=== PATIENT | male | born 1965 | race Caucasian/White ===

== ENCOUNTER → 2016-11-06 | Outpatient (CLI) | payer OTHER ==
[~2016-11-06] MED LIST: ASPI-391 PO; CARB1CAP8 PO; CLON0.5T3 PO; KPP/1000 PO; LACO100T PO; LAMO150T32 PO; LEVE1TAB57 PO; MULT-506 PO; OXYB10TA13 PO; OXYC-57 PO; PRLSR20 PO; TAMS0.4C38 PO
[2016-11-06 13:10] LABS: BASO % 0.6 %; BASO ABS # 0.04 K/uL (0-0.2); COMPLETE YES; EOS % 2.9 %; HEMATOCRIT 38.6 % (42-52); IG% 0.2 %; LYMPH % 37.3 %; LYMPH ABS # 2.33 K/uL (1.2-3.4); MEAN CELL VOLUME 93.7 fL (80-100); MEAN CORPUSCULAR HEMOGLOBIN 32.3 pg (25-34); MEAN CORPUSCULAR HGB CONC 34.5 g/dl (32-36); MEAN PLATELET VOLUME 9.5 fL (7.4-10.4); MONO % 7.5 %; NEUT % 51.5 %; PLATELET COUNT 351 K/uL (130-400); RED BLOOD COUNT 4.12 M/uL (4.7-6.1); WHITE BLOOD COUNT 6.24 K/uL (4.8-10.8)
[2016-11-06 13:31] LABS: URINE APPEARANCE CLEAR (CLEAR); URINE COLOR DK YELLOW; URINE NITRITE NEG (NEG); URINE SPECIFIC GRAVITY 1.024 (1.000-1.030); UROBILINOGEN NEG (NEG); ZZUR CULT IF INDIC CLEAN CATCH YES
[2016-11-06 13:32] LABS: ALT/SGPT 17 U/L (12-78); AST/SGOT 3 U/L (15-37); BLOOD UREA NITROGEN 11 mg/dl (7-18); BUN/CREATININE RATIO 13.5 (10-20); CALCIUM 8.7 mg/dl (8.5-10.1); CARBON DIOXIDE 30 mmol/L (21-32); CHLORIDE 105 mmol/L (98-107); CREATININE 0.84 mg/dl (0.60-1.40); GLUCOSE 105 mg/dl (70-99); POTASSIUM 3.5 mmol/L (3.5-5.1); SODIUM 142 mmol/L (136-145)
[2016-11-06 13:35] LABS: MANUAL MICROSCOPIC REQUIRED? NO; REVIEW REQ? NO; URINE BILIRUBIN NEG (NEG)
[2016-11-06 13:43] LABS: ALB/GLOB RATIO 1.3 (0.9-2); ALKALINE PHOSPHATASE 61 U/L (45-117); CHOLESTEROL 201 mg/dl (0-200); CHOLESTEROL/HDL RATIO 2.5; HDL CHOLESTEROL 79 mg/dl; LDL CHOLESTEROL CALCULATED 104 mg/dl; TRIGLYCERIDES 88 mg/dl (0-150); VERY LOW DENSITY LIPOPROT CALC 18 mg/dl
== END | disposition home or self-care (01) ==
LOC: C.LABBC 09:54
PROVIDERS: ATTEND Internal Medicine Geriatric Medicine
DX: E53.8 Deficiency of other specified B group vitamins (principal); E78.5 Hyperlipidemia, unspecified; R73.9 Hyperglycemia, unspecified; E55.9 Vitamin D deficiency, unspecified; R35.0 Frequency of micturition; G40.109 Localization-related (focal) (partial) symptomatic epilepsy and epileptic syndromes with simple partial seizures, not intractable, without status epilepticus

== ENCOUNTER → 2016-12-04 | Outpatient (CLI) | payer OTHER ==
[~2016-12-04] MED LIST changes: +GADAVIST IV PRN
--- NOTE | 2016-12-04 16:35 | DIAGNOSTIC IMAGING REPORT ---
MRI OF THE BRAIN WITHOUT AND WITH IV CONTRAST SEIZURE PROTOCOL CLINICAL HISTORY: G40.109 seizures COMPARISON STUDY: 05/02/2015 TECHNIQUE: Utilizing a 1.5 Gena magnet and dedicated coil, multiplanar, multiecho imaging of the brain was performed pre and postcontrast administration. IV administration of 8.5 mL of Gadavist contrast was uneventful. Thin cut coronal T2 imaging was performed according to seizure protocol. FINDINGS: No evidence for an acute ischemic process. Atrophy over the cerebral convexities as well as cerebellum. Findings are perhaps slightly progressive from the prior study. Signal characteristics the cerebellar as well as cerebral hemispheres otherwise are unremarkable. There is no evidence for abnormal postcontrast enhancement. Ventricular system is midline. IMPRESSION: Atrophy over the cerebral convexities as well as cerebellum slightly progressive from the prior study. No acute process. Electronically signed by: Roby Espino M.D. 12/04/2016 4:34 PM Dictated Date/Time: 12/04/2016 4:31 PM
== END | disposition home or self-care (01) ==
LOC: C.MRI 15:43
PROVIDERS: ATTEND Psychiatry & Neurology Neurology
DX: G40.109 Localization-related (focal) (partial) symptomatic epilepsy and epileptic syndromes with simple partial seizures, not intractable, without status epilepticus (principal); G31.9 Degenerative disease of nervous system, unspecified

== ENCOUNTER → 2016-12-05 | Outpatient (CLI) | payer OTHER ==
[~2016-12-05] MED LIST changes: -GADAVIST IV PRN
== END | disposition home or self-care (01) ==
LOC: C.LABSPEC 17:03
PROVIDERS: ATTEND Nurse Practitioner Family
DX: R31.9 Hematuria, unspecified (principal); R82.8 Abnormal findings on cytological and histological examination of urine

== ENCOUNTER → 2016-12-11 | Outpatient (CLI) | payer OTHER ==
[~2016-12-11] MED LIST changes: +OPTIRAY 320 IV PRN
--- NOTE | 2016-12-11 15:16 | DIAGNOSTIC IMAGING REPORT ---
CT UROGRAM CLINICAL HISTORY: Hematuria. COMPARISON STUDY: Abdominal CT dated 10/30/2015. TECHNIQUE: Before and following the IV administration of 119 cc of Optiray 320, CT urogram of the abdomen and pelvis is performed from the lung bases to the proximal femora. Images are reviewed in the axial, sagittal, and coronal planes. IV contrast was administered without complication. CT DOSE: 1028.14 mGycm FINDINGS: Lung bases: The heart is normal in size and without pericardial effusion. The lung bases are clear noting minimal dependent atelectasis. Liver: The contrast-enhanced liver is normal in size, contour, and attenuation. There is minimal central intrahepatic biliary ductal dilatation. The hepatic veins and portal veins are patent. Gallbladder: Surgically absent noting clips in the gallbladder fossa. Spleen: Normal in size and attenuation. Pancreas: Unremarkable. Adrenal glands: Unremarkable. Kidneys and ureters: The contrast enhanced kidneys are normal in size and without hydronephrosis. A 6 mm nonobstructing calculus is present in the lower pole of the left kidney. There are 2 punctate nonobstructing right renal calculi identified. The kidneys enhance and excrete symmetrically. There is no enhancing renal cortical mass lesion identified. There is no evidence of urothelial lesion within the renal pelvis bilaterally or along the course of either ureter. Abdominal vasculature: The abdominal aorta is normal in course and caliber. Bowel: The small bowel and colon are normal in course and caliber. There is moderate colonic fecal retention. The appendix is well-visualized and normal. Peritoneum: There is no intraperitoneal free air or abdominal ascites. There is a tiny fat-containing umbilical hernia. Lymphadenopathy: None. Pelvic viscera: The bladder, prostate, and seminal vesicles are normal as visualized. Skeletal structures: There is mild lumbosacral spondylosis. No lytic or blastic bony lesions are seen. IMPRESSION: 1. Bilateral nonobstructing renal calculi. 2. There is no enhancing renal cortical mass. No evidence of urothelial lesion is seen within the renal pelvis bilaterally or along the course of the ureters. 3. The bladder is normal as visualized. 4. Moderate constipation. 5. Additional findings as above. Electronically signed by: Ruben Ybarra M.D. 12/11/2016 3:15 PM Dictated Date/Time: 12/11/2016 3:08 PM
== END | disposition home or self-care (01) ==
LOC: C.CTS 14:09
PROVIDERS: ATTEND Nurse Practitioner Family
DX: R31.9 Hematuria, unspecified (principal); N20.0 Calculus of kidney; K59.00 Constipation, unspecified

== ENCOUNTER → 2017-05-28 | Outpatient (CLI) | payer OTHER ==
[~2017-05-28] MED LIST changes: -OPTIRAY 320 IV PRN
[2017-05-28 15:19] LABS: ALT/SGPT 17 U/L (12-78); AST/SGOT 4 U/L (15-37); BLOOD UREA NITROGEN 12 mg/dl (7-18); BUN/CREATININE RATIO 14.7 (10-20); CALCIUM 8.7 mg/dl (8.5-10.1); CARBON DIOXIDE 29 mmol/L (21-32); CHLORIDE 108 mmol/L (98-107); CREATININE 0.79 mg/dl (0.60-1.40); GLUCOSE 97 mg/dl (70-99); POTASSIUM 3.8 mmol/L (3.5-5.1); SODIUM 141 mmol/L (136-145)
[2017-05-28 15:22] LABS: ALB/GLOB RATIO 1.3 (0.9-2); ALKALINE PHOSPHATASE 73 U/L (45-117)
== END | disposition home or self-care (01) ==
LOC: C.LAB1850 12:56
PROVIDERS: ATTEND Urology
DX: G40.109 Localization-related (focal) (partial) symptomatic epilepsy and epileptic syndromes with simple partial seizures, not intractable, without status epilepticus (principal); Z51.81 Encounter for therapeutic drug level monitoring; Z79.899 Other long term (current) drug therapy

== ENCOUNTER 2017-06-01 08:07 | Emergency (ER) | payer OTHER ==
[~2017-06-01] VITALS: Ht 182.9 cm; Wt 81.0 kg
[~2017-06-01 08:07] MED LIST changes: -ASPI-391 PO; -CLON0.5T3 PO; -KPP/1000 PO; -LACO100T PO; -OXYC-57 PO; -TAMS0.4C38 PO
[2017-06-01 08:13] VITALS: TEMP 36.3; Ht 182.9 cm; Wt 81.0 kg
[2017-06-01] MEDS ORDERED: SODIUM CHLORIDE 0.9% 1000ML 1,000 ML IV STA (08:30)
[2017-06-01] MEDS ORDERED: KETOROLAC TROMETHAMINE 30 MG/ML VIAL IV STA (08:30)
[2017-06-01] MEDS ORDERED: ONDANSETRON INJ 2 MG/ML 2 ML VIAL IV STA (08:30)
[2017-06-01] MEDS ORDERED: KPP/1000 PO (08:39)
[2017-06-01] MEDS ORDERED: CLON0.5T3 PO (08:39)
[2017-06-01] MEDS ORDERED: ASPI-391 PO (08:39)
[2017-06-01] MEDS ORDERED: LACO100T PO (08:39)
[2017-06-01 09:00] LABS: BASO % 0.3 %; BASO ABS # 0.03 K/uL (0-0.2); COMPLETE YES; EOS % 0.8 %; HEMATOCRIT 37.9 % (42-52); IG% 0.1 %; LYMPH % 10.8 %; LYMPH ABS # 1.12 K/uL (1.2-3.4); MEAN CELL VOLUME 93.8 fL (80-100); MEAN CORPUSCULAR HEMOGLOBIN 31.9 pg (25-34); MEAN PLATELET VOLUME 9.3 fL (7.4-10.4); MONO % 6.8 %; NEUT % 81.2 %; PLATELET COUNT 281 K/uL (130-400); RED BLOOD COUNT 4.04 M/uL (4.7-6.1); WHITE BLOOD COUNT 10.37 K/uL (4.8-10.8)
[2017-06-01 09:16] LABS: URINE APPEARANCE CLOUDY (CLEAR); URINE BILIRUBIN NEG (NEG); URINE COLOR DK YELLOW; URINE NITRITE NEG (NEG); URINE SPECIFIC GRAVITY 1.031 (1.000-1.030); UROBILINOGEN NEG (NEG); ZZUR CULT IF INDIC CLEAN CATCH NO
[2017-06-01 09:18] LABS: BUN/CREATININE RATIO 13.3 (10-20); CALCIUM 8.5 mg/dl (8.5-10.1); CREATININE 0.9 mg/dl (0.60-1.40); POTASSIUM 3.6 mmol/L (3.5-5.1)
[2017-06-01 09:24] LABS: MANUAL MICROSCOPIC REQUIRED? YES; REVIEW REQ? NO
[2017-06-01 09:31] LABS: URINE BACTERIA NEG (NEG)
--- NOTE | 2017-06-01 09:31 | DIAGNOSTIC IMAGING REPORT ---
CT SCAN OF THE ABDOMEN AND PELVIS WITHOUT IV CONTRAST CLINICAL HISTORY: Left flank pain. COMPARISON STUDY: Abdominal CT dated 12/11/2016. TECHNIQUE: CT scan of the abdomen and pelvis is performed from the lung bases to the proximal femora. Images are reviewed in the axial, sagittal, and coronal planes. IV contrast was not administered for this examination as per the front clinician. Automated dose control exposure was utilized. A dose lowering technique was utilized adhering to the principles of ALARA. CT DOSE: 856.62 mGy.cm FINDINGS: Lung bases: The heart is enlarged and without pericardial effusion. There is diminished attenuation of the cardiac blood pool as compared to the myocardium suggesting anemia. The lung bases are clear noting dependent atelectasis. Liver: The unenhanced liver is normal in size, contour, and attenuation. There is minimal central intrahepatic biliary ductal dilatation. Gallbladder: Surgically absent noting clips in the gallbladder fossa. Spleen: Normal in size and attenuation. Pancreas: Unremarkable. Adrenal glands: Unremarkable. Kidneys: The unenhanced kidneys are normal in size. There is a 6 mm obstructing calculus in the mid left ureter at the level of L3-L4 seen on axial image #261. This causes moderate left-sided hydroureteronephrosis. There is associated left-sided perinephric stranding and trace fluid. There are at least 2 additional nonobstructing calculi in the lower pole of the left kidney measuring up to 6 mm. There are least 4 nonobstructing right renal calculi measuring up to 3 mm. There is no right-sided hydronephrosis. There is no evidence of contour deforming renal mass lesion. Abdominal vasculature: The abdominal aorta is normal in course and caliber. Bowel: The small bowel and colon are normal in course and caliber. There is moderate colonic fecal retention. The appendix is well-visualized and normal. Peritoneum: There is no intraperitoneal free air or abdominal ascites. Lymphadenopathy: None. Pelvic viscera: The bladder, prostate, and seminal vesicles are normal as visualized. Skeletal structures: There is mild lumbosacral spondylosis and scoliosis. No lytic or blastic lesions are seen. IMPRESSION: 1. There is a 6 mm obstructing calculus in the mid left ureter. This causes moderate left-sided hydroureteronephrosis. 2. Additional bilateral nonobstructing renal calculi as above. 3. Cardiomegaly. 4. Moderate constipation. Electronically signed by: Ruben Ybarra M.D. 06/01/2017 9:29 AM Dictated Date/Time: 06/01/2017 9:21 AM
[2017-06-01] MEDS ORDERED: MoRPHine SULFATE 4 MG/ML 1 ML CARP\\VIAL IV STA (09:43)
[2017-06-01] MEDS ORDERED: TAMSULOSIN HCL 0.4 MG CAP PO ONE (09:45)
[2017-06-01] MEDS ORDERED: TAMS0.4C38 PO (11:13)
[2017-06-01] MEDS ORDERED: OXYC-57 PO (11:13)
--- NOTE | 2017-06-01 11:17 | EMERGENCY ROOM VISIT NOTE ---
History Report prepared by Cristobal: Brunilda Lowe Under the Supervision of: Dr. Javier Zavala D.O. First contact with patient: 08:23 Chief Complaint: KIDNEY STONE Stated Complaint: LEFT SIDED ABD. PAIN History of Present Illness The patient is a 51 year old male who presents to the Emergency Room with complaints of persistent left sided abdominal pain starting 0530 this morning. He currently rates his discomfort as a 7/10 in severity. The patient describes the pain as strong and the pain goes from his left abdomen down to his left testicle. He has a history of kidney stones and feels that this is a kidney stone. He denies any nausea, vomiting, or diarrhea. He denies any other symptoms. Source of History: patient Onset: 0530 this morning Position: abdomen (left) Symptom Intensity: 7/10 Quality: other (strong pain) Timing: other (persistent) Associated Symptoms: No nausea, No vomiting, No diarrhea Review of Systems See HPI for pertinent positives & negatives. A total of 10 systems reviewed and were otherwise negative. Past Medical & Surgical Medical Problems: (1) Epilepsy Unspec W/O Mention Intractable Epilepsy (2) Esophageal Reflux (3) Hyperlipidemia Nec/Nos (4) Irritable Bowel Syndrome Surgical Problems: (1) Hx of cholecystectomy Family History Patient reports no known family medical history. Social History Smoking Status: Never Smoker Alcohol Use: none Drug Use: none Marital Status: single Current/Historical Medications Scheduled Carbamazepine (Carbatrol Er), 400 MG PO AMPM Clonazepam (Klonopin), 0.5 MG PO BID Lacosamide (Vimpat), 100 MG PO BID Lamotrigine (Lamictal), 300 MG PO AMPM Levetiracetam (Keppra), 2,000 MG PO BID Multivitamin (Multivitamin), 1 TAB PO DAILY Omeprazole (Prilosec), 20 MG PO AMPM Scheduled PRN Qloqxpq-Wprlctritseyu-Pglxmjoz (Excedrin Extra Strength), 1 TAB PO UD PRN for Pain Oxybutynin Chloride Er (Ditropan Xl), 10 MG PO DAILY PRN for INCONTINENCE Allergies Coded Allergies: Amoxicillin (Verified Allergy, Unknown, ., 06/01/17) Physical Exam Vital Signs Date Time Temp Pulse Resp B/P (MAP) Pulse Ox O2 Delivery O2 Flow Rate FiO2 06/01/17 10:53 57 15 121/73 97 Room Air 06/01/17 10:00 58 17 131/79 98 Room Air 06/01/17 09:37 55 19 134/83 99 Room Air 06/01/17 08:13 36.3 68 20 129/80 95 Room Air Physical Exam CONSTITUTIONAL/VITAL SIGNS: Reviewed / noted above. GENERAL: Non-toxic in appearance. INTEGUMENTARY: Warm, dry, and [place]. HEAD: Normocephalic. EYES: without scleral icterus or trauma. ENT/OROPHARYNX: clear and moist. LYMPHADENOPATHY/NECK: Is supple without lymphadenopathy or meningismus. RESPIRATORY: Lungs clear and equal. CARDIOVASCULAR: Regular rate and rhythm. GI/ABDOMEN: Soft and nontender. No organomegaly or pulsatile mass. No rebound or guarding. Normal bowel sounds. EXTREMITIES: Warm and well perfused. BACK: Left CVA tenderness. NEUROLOGICAL: Intact without focal deficits. PSYCHIATRIC: normal affect. MUSCULOSKELETAL: Normally developed with good muscle tone. Medical Decision & Procedures ER Provider Diagnostic Interpretation: Radiology results as stated below per my review and radiologist interpretation: CT SCAN OF THE ABDOMEN AND PELVIS WITHOUT IV CONTRAST CLINICAL HISTORY: Left flank pain. COMPARISON STUDY: Abdominal CT dated 12/11/2016. TECHNIQUE: CT scan of the abdomen and pelvis is performed from the lung bases to the proximal femora. Images are reviewed in the axial, sagittal, and coronal planes. IV contrast was not administered for this examination as per the front clinician. Automated dose control exposure was utilized. A dose lowering technique was utilized adhering to the principles of ALARA. CT DOSE: 856.62 mGy.cm FINDINGS: Lung bases: The heart is enlarged and without pericardial effusion. There is diminished attenuation of the cardiac blood pool as compared to the myocardium suggesting anemia. The lung bases are clear noting dependent atelectasis. Liver: The unenhanced liver is normal in size, contour, and attenuation. There is minimal central intrahepatic biliary ductal dilatation. Gallbladder: Surgically absent noting clips in the gallbladder fossa. Spleen: Normal in size and attenuation. Pancreas: Unremarkable. Adrenal glands: Unremarkable. Kidneys: The unenhanced kidneys are normal in size. There is a 6 mm obstructing calculus in the mid left ureter at the level of L3-L4 seen on axial image #261. This causes moderate left-sided hydroureteronephrosis. There is associated left-sided perinephric stranding and trace fluid. There are at least 2 additional nonobstructing calculi in the lower pole of the left kidney measuring up to 6 mm. There are least 4 nonobstructing right renal calculi measuring up to 3 mm. There is no right-sided hydronephrosis. There is no evidence of contour deforming renal mass lesion. Abdominal vasculature: The abdominal aorta is normal in course and caliber. Bowel: The small bowel and colon are normal in course and caliber. There is moderate colonic fecal retention. The appendix is well-visualized and normal. Peritoneum: There is no intraperitoneal free air or abdominal ascites. Lymphadenopathy: None. Pelvic viscera: The bladder, prostate, and seminal vesicles are normal as visualized. Skeletal structures: There is mild lumbosacral spondylosis and scoliosis. No lytic or blastic lesions are seen. IMPRESSION: 1. There is a 6 mm obstructing calculus in the mid left ureter. This causes moderate left-sided hydroureteronephrosis. 2. Additional bilateral nonobstructing renal calculi as above. 3. Cardiomegaly. 4. Moderate constipation. Electronically signed by: Ruben Ybarra M.D. 06/01/2017 9:29 AM Dictated Date/Time: 06/01/2017 9:21 AM Laboratory Results 06/01/17 08:45 Red Blood Count 4.04, Mean Corpuscular Volume 93.8, Mean Corpuscular Hemoglobin 31.9, Mean Corpuscular Hemoglobin Concent 34.0, Mean Platelet Volume 9.3, Neutrophils (%) (Auto) 81.2, Lymphocytes (%) (Auto) 10.8, Monocytes (%) (Auto) 6.8, Eosinophils (%) (Auto) 0.8, Basophils (%) (Auto) 0.3, Neutrophils # (Auto) 8.42, Lymphocytes # (Auto) 1.12, Monocytes # (Auto) 0.71, Eosinophils # (Auto) 0.08, Basophils # (Auto) 0.03 06/01/17 08:45 Test 06/01/17 08:35 06/01/17 08:45 Urine Color DK YELLOW Urine Appearance CLOUDY (CLEAR) Urine pH 5.0 (4.5-7.5) Urine Specific [place] 1.031 (1.000-1.030) Urine Protein NEG (NEG) Urine Glucose (UA) NEG (NEG) Urine Ketones NEG (NEG) Urine Occult Blood 2+ (NEG) Urine Nitrite NEG (NEG) Urine Bilirubin NEG (NEG) Urine Urobilinogen NEG (NEG) Urine Leukocyte Esterase TRACE (NEG) Urine RBC (Auto) /hpf (0-4) Urine RBC 10-30 /hpf (0-4) Urine WBC 1-5 /hpf (0-5) Urine Epithelial Cells 0-5 /lpf (0-5) Urine Crystals (NONE PRSENT) Urine Calcium Oxalate Crystals PRESENT (NONE PRSENT) Urine Bacteria NEG (NEG) White Blood Count 10.37 K/uL (4.8-10.8) Red Blood Count 4.04 M/uL (4.7-6.1) Hemoglobin 12.9 g/dL (14.0-18.0) Hematocrit 37.9 % (42-52) Mean Corpuscular Volume 93.8 fL (80-100) Mean Corpuscular Hemoglobin 31.9 pg (25-34) Mean Corpuscular Hemoglobin Concent 34.0 g/dl (32-36) Platelet Count 281 K/uL (130-400) Mean Platelet Volume 9.3 fL (7.4-10.4) Neutrophils (%) (Auto) 81.2 % Lymphocytes (%) (Auto) 10.8 % Monocytes (%) (Auto) 6.8 % Eosinophils (%) (Auto) 0.8 % Basophils (%) (Auto) 0.3 % Neutrophils # (Auto) 8.42 K/uL (1.4-6.5) Lymphocytes # (Auto) 1.12 K/uL (1.2-3.4) Monocytes # (Auto) 0.71 K/uL (0.11-0.59) Eosinophils # (Auto) 0.08 K/uL (0-0.5) Basophils # (Auto) 0.03 K/uL (0-0.2) RDW Standard Deviation 41.1 fL (36.4-46.3) RDW Coefficient of Variation 12.1 % (11.5-14.5) Immature Granulocyte % (Auto) 0.1 % Immature Granulocyte # (Auto) 0.01 K/uL (0.00-0.02) Anion Gap 6.0 mmol/L (3-11) Est Creatinine Clear Calc Drug Dose 109.0 ml/min Estimated GFR () 115.8 Estimated GFR (Non- 99.9 BUN/Creatinine Ratio 13.3 (10-20) Calcium Level 8.5 mg/dl (8.5-10.1) Total Bilirubin 0.3 mg/dl (0.2-1) Direct Bilirubin 0.1 mg/dl (0-0.2) Aspartate Amino Transf (AST/SGOT) 7 U/L (15-37) Alanine Aminotransferase (ALT/SGPT) 17 U/L (12-78) Alkaline Phosphatase 73 U/L (45-117) Total Protein 7.1 gm/dl (6.4-8.2) Albumin 3.9 gm/dl (3.4-5.0) Lipase 142 U/L (73-393) Laboratory results as stated above per my review. Medications Administered Medications (Trade) Dose Ordered Sig/Mey Route Start Time Stop Time Status Last Admin Dose Admin Sodium Chloride 1,000 ml @ 999 mls/hr Q1H1M STAT IV 06/01/17 08:30 06/01/17 09:30 DC 06/01/17 08:55 999 MLS/HR Ondansetron HCl (Zofran Inj) 4 mg NOW STAT IV 06/01/17 08:30 06/01/17 08:32 DC 06/01/17 08:55 4 MG Ketorolac Tromethamine (Toradol Inj) 30 mg NOW STAT IV 06/01/17 08:30 06/01/17 08:32 DC 06/01/17 08:56 30 MG Tamsulosin HCl (Flomax Cap) 0.4 mg NOW ONCE PO 06/01/17 09:45 06/01/17 09:46 DC 06/01/17 09:56 0.4 MG Morphine Sulfate (MoRPHine SULFATE INJ) 4 mg NOW STAT IV 06/01/17 09:43 06/01/17 09:44 DC 06/01/17 09:57 4 MG ED Course 0830: Toradol Inj 30 mg IV, Zofran Inj 4 mg IV, NSS 1000 ml @ 999 mls/hr IV. 0832: Previous medical records were reviewed. The patient was evaluated in room B6. A complete history and physical examination was performed. 0943: Morphine Sulfate 4 mg IV. 0945: Flomax Cap 0.4 mg PO. 1106: On reevaluation, the patient is doing well. I discussed the results and findings with the patient. He verbalized agreement of the treatment plan. He was discharged home. Medical Decision Differential considered: pancreatitis, hepatitis, or acute cholecystitis, AAA, UTI, pyelonephritis, kidney stones, appendicitis, diverticulitis, shingles, bowel obstruction mesenteric ischemia, intussusception,hernia, testicular torsion. This is a 51-year-old male who presents to the ED with a chief complaint of left lower abdominal pain that radiates into his testicle. The patient reports history of kidney stones. CT scan reveals a 6 mm mid left ureteral obstructing stone. Blood work including renal function and CBC were normal. Urine did not show infection. The patient was treated with IV Toradol, IV morphine, IV Zofran and IV fluids. On reassessment, he is feeling better. He was given by mouth Flomax. He was given a prescription for Flomax, Percocet and is to take ibuprofen. Urine strainer was also provided. He will follow-up with his urologist. Medication Reconcilliation Current Medication List: was personally reviewed by me Blood Pressure Screening Patient's blood pressure: Normal blood pressure Blood pressure disposition: Did not require urgent referral Impression Primary Impression: Renal colic Additional Impression: Ureteral calculus, left Scribe Attestation The scribe's documentation has been prepared under my direction and personally reviewed by me in its entirety. I confirm that the note above accurately reflects all work, treatment, procedures, and medical decision making performed by me. Departure Information Dispostion Home / Self-Care Prescriptions Oxycodone/Acetaminophen 5MG/325MG (PERCOCET 5MG/325MG) Tab 1 TAB PO Q6H Y for Pain, #20 TAB Prov: Javier Zavala D.O. 06/01/17 Tamsulosin Hcl (FLOMAX) 0.4 Mg Cap 0.4 MG PO HS for 10 Days, #10 CAP Prov: Javier Zavala D.O. 06/01/17 Referrals Jluis Bell M.D. (PCP) Patient Instructions My [facility] Additional Instructions Follow-up with your doctor for further care and evaluation in 1-5 days. Return to the emergency department for worsening or new symptoms or any concerns. You have been examined and treated today on an emergency basis only. This is not a substitute for, or an effort to provide, complete comprehensive medical care. It is impossible to recognize and treat all injuries or illnesses in a single emergency department visit. It is therefore important that you follow up closely with your doctor. Call as soon as possible for an appointment. Strain urine for stone. Take ibuprofen 6 mg every 6 hours for pain. Percocet as prescribed. No driving within 6 hours of use. Do not take additional Tylenol while taking Percocet. Flomax as prescribed. Problem Qualifiers
[2017-06-01 11:39] VITALS: BP 119/73; PULSE 53; O2SAT 98
== END 2017-06-01 11:37 | disposition home or self-care (01) ==
LOC: C.EDB 08:10
DX: N23 Unspecified renal colic (principal); N20.1 Calculus of ureter; E78.5 Hyperlipidemia, unspecified; K58.9 Irritable bowel syndrome, unspecified; G40.909 Epilepsy, unspecified, not intractable, without status epilepticus; K21.9 Gastro-esophageal reflux disease without esophagitis; Z87.442 Personal history of urinary calculi; Z79.899 Other long term (current) drug therapy

== ENCOUNTER → 2017-06-18 | Outpatient (CLI) | payer OTHER ==
[~2017-06-18] MED LIST changes: +ASPI-391 PO; +CLON0.5T3 PO; +KPP/1000 PO; +LACO100T PO; -LEVE1TAB57 PO; +OPTIRAY 300 IV PRN; +OXYC-57 PO
--- NOTE | 2017-06-18 14:43 | DIAGNOSTIC IMAGING REPORT ---
IV PYELOGRAM CLINICAL HISTORY: Nephrolithiasis. COMPARISON STUDY: Abdominal CT dated 06/01/2017. 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 IVP pyelogram was then performed following the IV administration of 100 cc of iodinated contrast, tomographic images are acquired in the corticomedullary and excretory phases of enhancement. Overhead views of the renal collecting system and bladder were obtained in multiple obliquities both pre and post void. 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 There is moderate colonic fecal retention. Cholecystectomy clips are present in the right upper quadrant. A punctate nonobstructing right renal calculus is observed. No additional renal calculi are identified on today's examination. The left ureteral calculus seen by CT on 06/01/2017 is no longer identified. Phleboliths are observed in the pelvis. Mild lumbosacral spondylosis is observed. Following contrast administration the kidneys enhance and excrete symmetrically. There is no hydronephrosis. No filling defects are identified within the renal pelvis bilaterally or along the course of the ureters. The distal left ureter is suboptimal opacified. The bladder is normal as visualized. No significant post-void residual is seen. IMPRESSION: 1. There is a punctate nonobstructing right renal calculus. 2. No additional renal calculi are identified. The left ureteral stone seen by CT on 06/01/2017 is no longer apparent. 3. Otherwise unremarkable IV pyelogram. . Electronically signed by: Ruben Ybarra M.D. 06/18/2017 2:42 PM Dictated Date/Time: 06/18/2017 2:39 PM
== END | disposition home or self-care (01) ==
LOC: C.RAD 12:32
PROVIDERS: ATTEND Nurse Practitioner Family
DX: N20.1 Calculus of ureter (principal)

== ENCOUNTER → 2017-11-03 | Outpatient (CLI) | payer OTHER ==
[~2017-11-03] MED LIST changes: +LAMO150T PO; -LAMO150T32 PO; -OPTIRAY 300 IV PRN
--- NOTE | 2017-11-03 16:10 | DIAGNOSTIC IMAGING REPORT ---
CHEST 2 VIEWS ROUTINE CLINICAL HISTORY: R05 [id number] cough. Dyspnea. COMPARISON STUDY: 10/26/2015 FINDINGS: The bones soft tissues and hemidiaphragms are normal. The cardiomediastinal silhouette is normal. The lungs are clear. The pulmonary vasculature is normal. IMPRESSION: Negative chest. The above report was generated using voice recognition software. It may contain grammatical, syntax or spelling errors. Electronically signed by: Roby Espino M.D. 11/03/2017 4:08 PM Dictated Date/Time: 11/03/2017 4:08 PM
== END | disposition home or self-care (01) ==
LOC: C.RADBC 15:53
PROVIDERS: ATTEND Nurse Practitioner Adult Health
DX: R05 Cough (principal)

== ENCOUNTER → 2017-11-10 | Outpatient (CLI) | payer OTHER ==
[2017-11-10 16:46] LABS: BASO % 0.7 %; BASO ABS # 0.04 K/uL (0-0.2); EOS % 3.3 %; EOS ABS # 0.18 K/uL (0-0.5); HEMATOCRIT 39.3 % (42-52); HEMOGLOBIN 13.3 g/dL (14.0-18.0); IG# 0.01 K/uL (0.00-0.02); LYMPH ABS # 1.54 K/uL (1.2-3.4); MEAN CELL VOLUME 96.3 fL (80-100); MEAN CORPUSCULAR HEMOGLOBIN 32.6 pg (25-34); MEAN CORPUSCULAR HGB CONC 33.8 g/dl (32-36); MEAN PLATELET VOLUME 10.1 fL (7.4-10.4); MONO ABS # 0.55 K/uL (0.11-0.59); NEUT % 57.8 %; NEUT ABS # 3.18 K/uL (1.4-6.5); PLATELET COUNT 284 K/uL (130-400); RED CELL DISTRIBUTION WIDTH SD 45.1 fL (36.4-46.3)
[2017-11-10 16:54] LABS: ALBUMIN 3.8 gm/dl (3.4-5.0); ALT/SGPT 18 U/L (12-78); BLOOD UREA NITROGEN 11 mg/dl (7-18); CALCIUM 8.7 mg/dl (8.5-10.1); CARBON DIOXIDE 27 mmol/L (21-32); CHOLESTEROL 186 mg/dl (0-200); CREATININE 0.78 mg/dl (0.60-1.40); GLUCOSE 86 mg/dl (70-99); POTASSIUM 3.4 mmol/L (3.5-5.1); SODIUM 141 mmol/L (136-145)
[2017-11-10 17:04] LABS: ALKALINE PHOSPHATASE 68 U/L (45-117); AST/SGOT 6 U/L (15-37); LDL CHOLESTEROL CALCULATED 89 mg/dl; TOTAL PROTEIN 6.7 gm/dl (6.4-8.2)
== END | disposition home or self-care (01) ==
LOC: C.LABBC 13:58
PROVIDERS: ATTEND Internal Medicine Geriatric Medicine
DX: G40.109 Localization-related (focal) (partial) symptomatic epilepsy and epileptic syndromes with simple partial seizures, not intractable, without status epilepticus (principal); E78.5 Hyperlipidemia, unspecified; R97.20 Elevated prostate specific antigen [PSA]

== ENCOUNTER 2018-01-30 18:11 | Emergency (ER) | payer OTHER ==
[~2018-01-30] VITALS: Ht 182.9 cm; Wt 83.0 kg
[~2018-01-30 18:11] MED LIST changes: -OXYC-57 PO
[2018-01-30 18:16] VITALS: TEMP 36.5; Ht 182.9 cm; Wt 83.0 kg
[2018-01-30 19:32] LABS: HEMATOCRIT 40.9 % (42-52); HEMOGLOBIN 14.2 g/dL (14.0-18.0); MEAN CORPUSCULAR HEMOGLOBIN 32.3 pg (25-34); MEAN CORPUSCULAR HGB CONC 34.7 g/dl (32-36); MEAN PLATELET VOLUME 9.7 fL (7.4-10.4); PLATELET COUNT 278 K/uL (130-400); RED CELL DISTRIBUTION WIDTH CV 12.4 % (11.5-14.5); WHITE BLOOD COUNT 7.61 K/uL (4.8-10.8)
[2018-01-30 19:50] LABS: CALCIUM 8.7 mg/dl (8.5-10.1); CREATININE 1.01 mg/dl (0.60-1.40); POTASSIUM 3.7 mmol/L (3.5-5.1)
[2018-01-30] MEDS ORDERED: ONDANSETRON INJ 2 MG/ML 2 ML VIAL IV STA (19:57)
[2018-01-30] MEDS ORDERED: KETOROLAC TROMETHAMINE 30 MG/ML VIAL IV STA (19:57)
[2018-01-30] MEDS ORDERED: SODIUM CHLORIDE 0.9% 1000ML 1,000 ML IV STA (19:57)
[2018-01-30] MEDS ORDERED: MoRPHine SULFATE 4 MG/ML 1 ML CARP\\VIAL IV PRN (20:00)
[2018-01-30] MEDS ORDERED: LMC25 PO (20:39)
[2018-01-30] MEDS ORDERED: KLN5X PO (20:39)
--- NOTE | 2018-01-30 20:55 | EMERGENCY ROOM VISIT NOTE ---
History Report prepared by Cristobal: Brunilda Lowe Under the Supervision of: Dr. Ruben Rudd M.D. First contact with patient: 19:56 Chief Complaint: KIDNEY STONE Stated Complaint: URETHA+KIDNEY PAIN POSSIBLE KIDNEY STONE History of Present Illness The patient is a 52 year old male who presents to the Emergency Room with complaints of persistent right flank pain starting 5.5 hours ago. The patient thinks that he is passing another kidney stone. He has had several kidney stones in the past and follows with urology. His last kidney stone was last fall and required intervention to pass. He suddenly started having pain today in his right flank. He also has pain in his groin and at the tip of his penis. He currently rates his discomfort as a 9/10 in severity. He took Excedrin to no significant relief. He also drank 2 liters of water. He denies any nausea, vomiting, or hematuria. Source of History: patient Onset: 5.5 hours ago Position: other (right flank) Symptom Intensity: 9/10 Quality: other (kidney stone pain) Timing: other (persistent) Associated Symptoms: No nausea, No vomiting, No urinary symptoms Note: Pt reports groin pain, tip of penis pain. Review of Systems See HPI for pertinent positives & negatives. A total of 10 systems reviewed and were otherwise negative. Past Medical & Surgical Medical Problems: (1) Epilepsy Unspec W/O Mention Intractable Epilepsy (2) Esophageal Reflux (3) Hyperlipidemia Nec/Nos (4) Irritable Bowel Syndrome Surgical Problems: (1) Hx of cholecystectomy Family History Cancer FH: heart disease Hypertension Seizures Social History Smoking Status: Never Smoker Alcohol Use: none Drug Use: none Marital Status: single Occupation Status: disabled Current/Historical Medications Scheduled Carbamazepine (Carbatrol Er), 400 MG PO AMPM Clonazepam (Klonopin), 0.5 MG PO QAM Clonazepam (Clonazepam), 1 MG PO QPM Lacosamide (Vimpat), 100 MG PO BID Lamotrigine (Lamotrigine), 25 MG PO QAM Levetiracetam (Keppra), 2,000 MG PO BID Multivitamin (Multivitamin), 1 TAB PO DAILY Tamsulosin Hcl (Flomax), 0.4 MG PO DAILY Scheduled PRN Ylpfefc-Zgnrqpaofrwtj-Etevqjjb (Excedrin Extra Strength), 1 TAB PO UD PRN for Pain Omeprazole (Prilosec), 20 MG PO DAILY PRN for REFLUX Oxybutynin Chloride Er (Ditropan Xl), 10 MG PO DAILY PRN for INCONTINENCE Oxycodone Ir (Roxicodone Ir), 1-2 TAB PO Q4H PRN for Pain Allergies Coded Allergies: Amoxicillin (Verified Allergy, Unknown, ., 06/01/17) Physical Exam Vital Signs Date Time Temp Pulse Resp B/P (MAP) Pulse Ox O2 Delivery O2 Flow Rate FiO2 01/30/18 22:05 71 16 122/80 96 Room Air 01/30/18 20:10 70 16 127/82 99 Room Air 01/30/18 18:16 36.5 72 20 140/95 98 Room Air Physical Exam GENERAL: Patient is in no acute distress. HEENT: No acute trauma, normocephalic atraumatic, mucous membranes moist, no nasal congestion, no scleral icterus. NECK: No stridor, no adenopathy, no meningismus, trachea is midline. LUNGS: Clear to auscultation bilaterally, no wheeze, no rhonchi, breath sounds equal. HEART: Without murmurs gallops or rubs, regular rate and rhythm. ABDOMEN: Soft, tenderness along the entire right side of the abdomen, bowel sounds positive, no hernias, no peritonitis. BACK: Right flank discomfort with percussion. EXTREMITIES: No cyanosis or edema, full range of motion of all the joints without pain or difficulty, no signs for acute trauma. NEUROLOGIC: Oriented x 3, no acute motor or sensory deficits, no focal weakness. SKIN: No rash, no jaundice, no diaphoresis. Medical Decision & Procedures ER Provider Diagnostic Interpretation: X-ray results as stated below per interpretation by me and the radiologist. Radiology results as stated below per my review and radiologist interpretation: KUB CLINICAL HISTORY: right sided stone nephrocalcinosis COMPARISON STUDY: 06/18/2017 FINDINGS: Nonobstructive bowel pattern. Prior cholecystectomy. Nonobstructing calcification lower pole right kidney unchanged. Several pelvic vascular calcifications. Probable calcification right ureterovesical junction. IMPRESSION: Probable calcification right ureterovesical junction. Nonobstructing lower pole right renal calcification unchanged from the prior exam. The above report was generated using voice recognition software. It may contain grammatical, syntax or spelling errors. Electronically signed by: Roby Espino M.D. 01/30/2018 9:46 PM Dictated Date/Time: 01/30/2018 9:45 PM (RENAL)RETROPERITON COMP HISTORY: Flank pain right sided flank pain COMPARISON: None. FINDINGS: Right kidney: Maximum dimension 11.9 cm. Mild hydronephrosis. 3 mm mid pole nonobstructing calcification. Normal corticomedullary differentiation and cortical thickness. Left kidney: Maximum dimension 10.7 cm. No evidence for hydronephrosis. 6 mm lower pole nonobstructing calcification. Normal corticomedullary differentiation and cortical thickness. Bladder: Probable 4 mm calculus right ureteral vesicle junction. IMPRESSION: 1. 4 mm calculus right ureterovesical junction. 2. Mild right hydronephrosis 3. Nonobstructing bilateral renal calcifications. The above report was generated using voice recognition software. It may contain grammatical, syntax or spelling errors. Electronically signed by: Roby Espino M.D. 01/30/2018 9:30 PM Dictated Date/Time: 01/30/2018 9:29 PM Laboratory Results 01/30/18 19:19 01/30/18 19:19 Test 01/30/18 19:19 01/30/18 20:30 Red Blood Count 4.40 M/uL (4.7-6.1) Mean Corpuscular Volume 93.0 fL (80-100) Mean Corpuscular Hemoglobin 32.3 pg (25-34) Mean Corpuscular Hemoglobin Concent 34.7 g/dl (32-36) RDW Standard Deviation 42.0 fL (36.4-46.3) RDW Coefficient of Variation 12.4 % (11.5-14.5) Mean Platelet Volume 9.7 fL (7.4-10.4) Anion Gap 6.0 mmol/L (3-11) Est Creatinine Clear Calc Drug Dose 96.1 ml/min Estimated GFR () 100.1 Estimated GFR (Non- 86.3 BUN/Creatinine Ratio 14.5 (10-20) Calcium Level 8.7 mg/dl (8.5-10.1) Urine Color YELLOW Urine Appearance CLEAR (CLEAR) Urine pH 5.0 (4.5-7.5) Urine Specific Dickson 1.023 (1.000-1.030) Urine Protein NEG (NEG) Urine Glucose (UA) NEG (NEG) Urine Ketones NEG (NEG) Urine Occult Blood NEG (NEG) Urine Nitrite NEG (NEG) Urine Bilirubin NEG (NEG) Urine Urobilinogen NEG (NEG) Urine Leukocyte Esterase NEG (NEG) Urine WBC (Auto) 1-5 /hpf (0-5) Urine RBC (Auto) 0-4 /hpf (0-4) Urine Hyaline Casts (Auto) 1-5 /lpf (0-5) Urine Epithelial Cells (Auto) 10-20 /lpf (0-5) Urine Bacteria (Auto) NEG (NEG) Laboratory results reviewed by me. Medications Administered Medications (Trade) Dose Ordered Sig/Mey Route Start Time Stop Time Status Last Admin Dose Admin Ketorolac Tromethamine (Toradol Inj) 30 mg NOW STAT IV 01/30/18 19:57 01/30/18 20:01 DC 01/30/18 20:28 30 MG Morphine Sulfate (MoRPHine SULFATE INJ) 4 mg Q15M PRN IV 01/30/18 20:00 01/30/18 22:51 DC 01/30/18 20:28 4 MG Ondansetron HCl (Zofran Inj) 4 mg NOW STAT IV 01/30/18 19:57 01/30/18 20:01 DC 01/30/18 20:28 4 MG Sodium Chloride 1,000 ml @ 999 mls/hr Q1H1M STAT IV 01/30/18 19:57 01/30/18 20:57 DC 01/30/18 20:27 999 MLS/HR Tamsulosin HCl (Flomax Cap) 0.4 mg NOW ONCE PO 01/30/18 22:00 01/30/18 22:01 DC 01/30/18 22:18 0.4 MG ED Course 1956: The patient was evaluated in room C12B. A complete history and physical exam was performed. 1956: Sodium Chloride 1000 ml @ 999 mls/hr IV, Zofran Inj 4 mg IV, Toradol Inj 30 mg IV. 1999: Morphine Sulfate 4 mg IV. 2150: Reevaluated the patient. Discussed results and discharge instructions: He verbalized understanding and agreement. The patient is ready for discharge. 2199: Flomax Cap 0.4 mg PO, Oxycodone HCl 1 homepack PO. Medical Decision Differential diagnoses considered include renal colic, hydronephrosis, UTI, musculoskeletal pain, hernia, pancreatitis, biliary colic. There is no leukocytosis or anemia. No significant electrolyte abnormality or kidney failure. Urinalysis does not show infection or significant hematuria. Renal ultrasound shows a right 4 mm ureteral stone with hydronephrosis. The patient received IV saline, IV morphine, IV Toradol, IV Zofran and oral Flomax. The patient feels markedly improved. He does feel comfortable with discharge home. He will strain all his urine for the stone. He was given prescriptions for Flomax and oxycodone. He will return for fever, vomiting or uncontrolled pain. Urology follow-up was suggested. [place] Drug Monitoring Program Search Results: patient reviewed within database, no issues identified Medication Reconcilliation Current Medication List: was personally reviewed by me Blood Pressure Screening Patient's blood pressure: Elevated blood pressure Blood pressure disposition: Elevated BP felt to be situational Impression Primary Impression: Renal colic Scribe Attestation The scribe's documentation has been prepared under my direction and personally reviewed by me in its entirety. I confirm that the note above accurately reflects all work, treatment, procedures, and medical decision making performed by me. Departure Information Dispostion Home / Self-Care Prescriptions Oxycodone Ir (Roxicodone Ir) 5 Mg Tab 1-2 TAB PO Q4H Y for Pain, #10 TAB Prov: Ruben Rudd M.D. 01/30/18 Tamsulosin Hcl (FLOMAX) 0.4 Mg Cap 0.4 MG PO DAILY, #10 CAP Prov: Ruben Rudd M.D. 01/30/18 Referrals Jlusi Bell M.D. (PCP) Forms HOME CARE DOCUMENTATION FORM, IMPORTANT VISIT INFORMATION Patient Instructions My [facility] Additional Instructions motrin or tylenol for pain oxy ir 1-2 tab every 4 hours for severe pain flomax daily to help the stone passage fluids rest strain all the urine for the stone follow with urology if not passing the stone return for fever, vomiting or uncontrolled pain
--- NOTE | 2018-01-30 21:31 | DIAGNOSTIC IMAGING REPORT ---
(RENAL)RETROPERITON COMP HISTORY: Flank pain right sided flank pain COMPARISON: None. FINDINGS: Right kidney: Maximum dimension 11.9 cm. Mild hydronephrosis. 3 mm mid pole nonobstructing calcification. Normal corticomedullary differentiation and cortical thickness. Left kidney: Maximum dimension 10.7 cm. No evidence for hydronephrosis. 6 mm lower pole nonobstructing calcification. Normal corticomedullary differentiation and cortical thickness. Bladder: Probable 4 mm calculus right ureteral vesicle junction. IMPRESSION: 1. 4 mm calculus right ureterovesical junction. 2. Mild right hydronephrosis 3. Nonobstructing bilateral renal calcifications. The above report was generated using voice recognition software. It may contain grammatical, syntax or spelling errors. Electronically signed by: Roby Espino M.D. 01/30/2018 9:30 PM Dictated Date/Time: 01/30/2018 9:29 PM
--- NOTE | 2018-01-30 21:47 | DIAGNOSTIC IMAGING REPORT ---
KUB CLINICAL HISTORY: right sided stone nephrocalcinosis COMPARISON STUDY: 06/18/2017 FINDINGS: Nonobstructive bowel pattern. Prior cholecystectomy. Nonobstructing calcification lower pole right kidney unchanged. Several pelvic vascular calcifications. Probable calcification right ureterovesical junction. IMPRESSION: Probable calcification right ureterovesical junction. Nonobstructing lower pole right renal calcification unchanged from the prior exam. The above report was generated using voice recognition software. It may contain grammatical, syntax or spelling errors. Electronically signed by: Roby Espino M.D. 01/30/2018 9:46 PM Dictated Date/Time: 01/30/2018 9:45 PM
[2018-01-30] MEDS ORDERED: TAMS0.4C38 PO (21:57)
[2018-01-30] MEDS ORDERED: OXYC1TAB3 PO (21:57)
[2018-01-30] MEDS ORDERED: TAMSULOSIN HCL 0.4 MG CAP PO ONE (22:00)
[2018-01-30] MEDS ORDERED: OXYCODONE IR HOME PACK PO ONE (22:00)
[2018-01-30 22:05] VITALS: BP 122/80; PULSE 71; O2SAT 96
== END 2018-01-30 22:26 | disposition home or self-care (01) ==
LOC: C.EDB 18:12 → C.EDC 22:26
DX: N23 Unspecified renal colic (principal); G40.909 Epilepsy, unspecified, not intractable, without status epilepticus; E78.5 Hyperlipidemia, unspecified; K58.9 Irritable bowel syndrome, unspecified; K21.9 Gastro-esophageal reflux disease without esophagitis; Z87.442 Personal history of urinary calculi; Z79.899 Other long term (current) drug therapy; Z88.1 Allergy status to other antibiotic agents

== ENCOUNTER → 2018-02-11 | Day surgery (SDC) | payer OTHER ==
[2018-02-04 12:31] VITALS: Ht 182.9 cm; Wt 81.8 kg
[~2018-02-11] VITALS: Ht 182.9 cm; Wt 81.8 kg
[~2018-02-11] MED LIST changes: +CHOL100010 PO; +CYAN10004 PO; +KLN5X PO; -LAMO150T PO; +LIDOCAINE HCL 2% 2 ML VIAL (20MG/ML) ONE; +LMC25 PO; +MIDAZOLAM HCL 1 MG/ML 2ML VIAL ONE; +ONDANSETRON INJ 2 MG/ML 2 ML VIAL ONE; +OXYC1TAB3 PO; +PROPOFOL IV EMULSION 10 MG/ML 20 ML VIAL ONE; +SODIUM CHLORIDE 0.9% 500ML 500 ML IV ONE
--- NOTE | 2018-02-11 13:11 | Endo History and Physical ---
History & Physical Date of Service: February 11, 2018. Chief Complaint: Family history of colon cancer (father) Referring Physician: Dr. Bell History of Present Illness 52 yo CM who presents for colonoscopy secondary to family history of colon cancer. Past Medical History Reflux, Seizure Disorder Past Surgical History Hx Cardiac Surgery: No Hx Internal Defibrillator: No Hx Pacemaker: No Hx Abdominal Surgery: Yes ([facility], 2005) Hx of Implantable Prosthesis: No Hx Post-Op Nausea and Vomiting: No Hx Cancer Surgery: No Hx Thoracic Surgery: No Hx Orthopedic: No Hx Urinary Tract Surgery: No Family History Colon CA, Polyp, IBD Social History Smoking Status: Never Smoker Hx Substance Use: No Hx Alcohol Use: Yes (RARELY) Allergies Coded Allergies: Amoxicillin (Verified Allergy, Unknown, ., 06/01/17) Current Medications Reported Home Medications Medications Dose Route/Sig Max Daily Dose Days Date Category Vitamin D (Cholecalciferol) 1,000 Unit Tab 1 Tab PO DAILY 02/04/18 Reported Vitamin B-12 1000 Mcg (Cyanocobalamin) 1,000 Mcg Tab 1 Tab PO DAILY 30 02/04/18 Reported Carbatrol Er (Carbamazepine) 200 Mg Capcr 400 Mg PO QPM 02/04/18 Reported Roxicodone Ir (Oxycodone HCl) 5 Mg Tab 1-2 Tab PO Q4H PRN 01/30/18 Rx Lamotrigine 25 Mg Tab 25 Mg PO QAM 01/30/18 Reported Clonazepam 0.5 Mg Tab 1 Mg PO QPM 01/30/18 Reported Excedrin Extra Strength (Xsaoovr-Xykvfvzyyyjif-Suangpsu) 1 Tab Tab 1 Tab PO UD PRN 06/01/17 Reported Klonopin (Clonazepam) 0.5 Mg Tab 0.5 Mg PO QAM 06/01/17 Reported Vimpat (Lacosamide) 100 Mg Tab 100 Mg PO BID 06/01/17 Reported Keppra (Levetiracetam) 1,000 Mg Tab 2,000 Mg PO BID 06/01/17 Reported Ditropan Xl (Oxybutynin Chloride) 10 Mg Tab 10 Mg PO DAILY PRN 02/21/16 Reported Multivitamin (Multivitamins) Tab 1 Tab PO DAILY 02/21/16 Reported Prilosec (Omeprazole) 20 Mg Capcr 20 Mg PO DAILY PRN 05/01/15 Reported Carbatrol Er (Carbamazepine) 200 Mg Capcr 200 Mg PO QAM 12/05/14 Reported Vital Signs Weight (Kilograms): 81.82 Height (Feet): 6 Height (Inches): 0 Date Time Temp Pulse Resp B/P (MAP) Pulse Ox O2 Delivery O2 Flow Rate FiO2 02/11/18 12:30 36.7 59 20 129/74 (92) 94 Room Air Physical Exam General Appearance: WD/WN, no apparent distress Respiratory/Chest: Auscultation: breath sounds normal Cardiovascular: Heart Auscultation: RRR Abdomen: Bowel Sounds: normal Inspection & Palpation: soft, non-distended, no tenderness, guarding & rebound Assessment and Plan Assessment: 52 yo CM who presents for colonoscopy secondary to family history of colon cancer. Plan: Proceed with colonoscopy.
--- NOTE | 2018-02-11 14:06 | Anesthesiology Progress Note ---
Anesthesia Post Op Note Date & Time February 11, 2018 at 14:06 Vital Signs Pain Intensity: 0 Vital Signs Past 12 Hours Date Time Temp Pulse Resp B/P (MAP) Pulse Ox O2 Delivery O2 Flow Rate FiO2 02/11/18 13:50 58 16 109/63 (78) 98 Room Air 02/11/18 12:30 36.7 59 20 129/74 (92) 94 Room Air Notes Mental Status: alert / awake / arousable, participated in evaluation Pt Amnestic to Procedure: Yes Nausea / Vomiting: adequately controlled Pain: adequately controlled Airway Patency, RR, SpO2: stable & adequate BP & HR: stable & adequate Hydration State: stable & adequate Anesthetic Complications: no major complications apparent
--- NOTE | 2018-02-11 14:07 | Discharge Instructions ---
Endoscopy Patient Instructions Date / Procedure(s) Performed February 11, 2018. Colonoscopy Allergy Information Coded Allergies: Amoxicillin (Verified Allergy, Unknown, ., 06/01/17) Discharge Date / Findings February 11, 2018. Internal hemorrhoids Medication Instructions Stopped Medication(s): Bruce MCKEON to resume all medications today as prescribed Reported Home Medications Medications Dose Route/Sig Max Daily Dose Days Date Category Vitamin D (Cholecalciferol) 1,000 Unit Tab 1 Tab PO DAILY 02/04/18 Reported Vitamin B-12 1000 Mcg (Cyanocobalamin) 1,000 Mcg Tab 1 Tab PO DAILY 30 02/04/18 Reported Carbatrol Er (Carbamazepine) 200 Mg Capcr 400 Mg PO QPM 02/04/18 Reported Roxicodone Ir (Oxycodone HCl) 5 Mg Tab 1-2 Tab PO Q4H PRN 01/30/18 Rx Lamotrigine 25 Mg Tab 25 Mg PO QAM 01/30/18 Reported Clonazepam 0.5 Mg Tab 1 Mg PO QPM 01/30/18 Reported Excedrin Extra Strength (Hwzylou-Cbaebdmrjkcmz-Wpsoeglm) 1 Tab Tab 1 Tab PO UD PRN 06/01/17 Reported Klonopin (Clonazepam) 0.5 Mg Tab 0.5 Mg PO QAM 06/01/17 Reported Vimpat (Lacosamide) 100 Mg Tab 100 Mg PO BID 06/01/17 Reported Keppra (Levetiracetam) 1,000 Mg Tab 2,000 Mg PO BID 06/01/17 Reported Ditropan Xl (Oxybutynin Chloride) 10 Mg Tab 10 Mg PO DAILY PRN 02/21/16 Reported Multivitamin (Multivitamins) Tab 1 Tab PO DAILY 02/21/16 Reported Prilosec (Omeprazole) 20 Mg Capcr 20 Mg PO DAILY PRN 05/01/15 Reported Carbatrol Er (Carbamazepine) 200 Mg Capcr 200 Mg PO QAM 12/05/14 Reported Provider Instructions Activity Restrictions - No exercising or heavy lifting for 24 hours. - Do not drink alcohol the day of the procedure. - Do not drive a car or operate machinery until the day after the procedure. - Do not make any important decisions or sign important papers in 24 hours after the procedure. Following Day: - Return to full activity which may include returning to work/school. Diet Start your diet with liquids and light foods (jello, soup, juice, toast). Then eat your usual diet if not nauseated. Treatment For Common After Affects For mild abdominal pain, bloating, or excessive gas: - Rest - Eat lightly - Lie on right side Follow-Up Information Follow-up with Dr. Bell as scheduled Anesthesia Information What You Should Know You have had a procedure that required some medicine to reduce anxiety and discomfort. This treatment is called moderate sedation. After receiving the treatment, you may be sleepy, but you will be able to breathe on your own. The effects of the treatment may last for several hours. Follow these instructions along with Activity/Diet recommendations noted above: * Do NOT do anything where dizziness or clumsiness would be dangerous. * Rest quietly at home today, then you can be up and about tomorrow. * Have a responsible person stay with you the rest of today. * You may have had an I.V. today. If so, you may take the dressing off later today. Recommendations Call your doctor if: * Trouble breathing * Continuous vomiting for more than 24 hours * Temperature above 101 degrees * Severe abdominal pain or bloating * Pain not relieved by pain medicine ordered * There is increased drainage or redness from any incision * A large amount of rectal bleeding greater than 2-3 tablespoons. (If you had a polyp/s removed or have hemorrhoids, a small amount of blood - from the rectum is to be expected.) * You have any unanswered questions or concerns. IN THE EVENT OF A SERIOUS EMERGENCY, GO TO THE NEAREST EMERGENCY ROOM Your discharge instructions were prepared by provider Ian Mata. Patient Instructions Signature Page Julius Franco Patient (or Guardian) Signature/Date: I have read and understand the instructions given to me by my caregivers. Caregiver/RN/Doctor Signature/Date: The above-named patient and/or guardian has received patient instructions on this date. + Original Patient Signature Page (only) stays with chart. Please make copy for patient.
[2018-02-11 14:20] VITALS: BP 125/76; PULSE 49; O2SAT 98
--- NOTE | 2018-02-11 14:23 | GI REPORT ---
Patient Name: Julius Franco Procedure Date: 02/11/2018 12:41 PM Date of : 1965 Admit Type: Outpatient Age: 52 Gender: Male Attending MD: Ian Mata DO Procedure: Colonoscopy Providers: Ian Mata DO Referring MD: Jluis Bell Indications: Family history of colon cancer in a first-degree relative Medicines: Monitored Anesthesia Care Complications: No immediate complications. Estimated Blood Loss: Estimated blood loss: none. Procedure: Pre-Anesthesia Assessment: - Prior to the procedure, a History and Physical was performed, and patient medications and allergies were reviewed. The patient's tolerance of previous anesthesia was also reviewed. The risks and benefits of the procedure and the sedation options and risks were discussed with the patient. All questions were answered, and informed consent was obtained. Prior Anticoagulants: The patient has taken no previous anticoagulant or antiplatelet agents. ASA Grade Assessment: III - A patient with severe systemic disease. After reviewing the risks and benefits, the patient was deemed in satisfactory condition to undergo the procedure. After I obtained informed consent, the scope was passed under direct vision. Throughout the procedure, the patient's blood pressure, pulse, and oxygen saturations were monitored continuously. The Scope was introduced through the anus and advanced to the terminal ileum. The colonoscopy was performed without difficulty. The patient tolerated the procedure well. The quality of the bowel preparation was good. The terminal ileum, ileocecal valve, appendiceal orifice, and rectum were photographed. Findings: The perianal and digital rectal examinations were normal. Non-bleeding internal hemorrhoids were found during retroflexion. The hemorrhoids were small. Impression: - Non-bleeding internal hemorrhoids. - No specimens collected. Recommendation: - Resume previous diet. - Continue present medications. - Repeat colonoscopy in 5 years for surveillance. - Return to primary care physician as previously scheduled. Ian Mata DO 02/11/2018 2:22:39 PM This report has been signed electronically. Note Initiated On: 02/11/2018 12:41 PM Number of Addenda: 0 I attest to the content of the Intraoperative Record and orders documented therein, exceptions below {[id number]}
== END | disposition home or self-care (01) ==
LOC: C.GI 11:58
PROVIDERS: ATTEND Internal Medicine
DX: Z12.11 Encounter for screening for malignant neoplasm of colon (principal); K64.8 Other hemorrhoids; K21.9 Gastro-esophageal reflux disease without esophagitis; Z80.0 Family history of malignant neoplasm of digestive organs; G40.909 Epilepsy, unspecified, not intractable, without status epilepticus; Z88.0 Allergy status to penicillin; Z90.49 Acquired absence of other specified parts of digestive tract

== ENCOUNTER → 2018-06-04 | Outpatient (CLI) | payer OTHER ==
[~2018-06-04] MED LIST changes: -CLON0.5T3 PO; +KLN/5 PO; -LIDOCAINE HCL 2% 2 ML VIAL (20MG/ML) ONE; -MIDAZOLAM HCL 1 MG/ML 2ML VIAL ONE; -ONDANSETRON INJ 2 MG/ML 2 ML VIAL ONE; +OXYC-90 PO; -OXYC1TAB3 PO; -PROPOFOL IV EMULSION 10 MG/ML 20 ML VIAL ONE; -SODIUM CHLORIDE 0.9% 500ML 500 ML IV ONE
[2018-06-04 12:59] LABS: BASO % 0.3 %; BASO ABS # 0.02 K/uL (0-0.2); EOS % 3.3 %; EOS ABS # 0.23 K/uL (0-0.5); HEMATOCRIT 39.3 % (42-52); HEMOGLOBIN 13.3 g/dL (14.0-18.0); IG# 0.01 K/uL (0.00-0.02); LYMPH % 28.9 %; LYMPH ABS # 2.02 K/uL (1.2-3.4); MEAN CELL VOLUME 94.7 fL (80-100); MEAN CORPUSCULAR HGB CONC 33.8 g/dl (32-36); MEAN PLATELET VOLUME 10.2 fL (7.4-10.4); MONO ABS # 0.77 K/uL (0.11-0.59); NEUT % 56.4 %; NEUT ABS # 3.94 K/uL (1.4-6.5); PLATELET COUNT 289 K/uL (130-400); RED CELL DISTRIBUTION WIDTH CV 12.3 % (11.5-14.5); RED CELL DISTRIBUTION WIDTH SD 42.6 fL (36.4-46.3); WHITE BLOOD COUNT 6.99 K/uL (4.8-10.8)
[2018-06-04 16:22] LABS: ALBUMIN 3.8 gm/dl (3.4-5.0); ALKALINE PHOSPHATASE 78 U/L (45-117); ALT/SGPT 18 U/L (12-78); AST/SGOT 7 U/L (15-37); BLOOD UREA NITROGEN 11 mg/dl (7-18); CALCIUM 8.6 mg/dl (8.5-10.1); CARBON DIOXIDE 28 mmol/L (21-32); CREATININE 0.84 mg/dl (0.60-1.40); GLUCOSE 83 mg/dl (70-99); POTASSIUM 3.3 mmol/L (3.5-5.1); SODIUM 141 mmol/L (136-145); TOTAL PROTEIN 7.1 gm/dl (6.4-8.2)
== END | disposition home or self-care (01) ==
LOC: C.LABBC 11:39
PROVIDERS: ATTEND Psychiatry & Neurology Neurology
DX: G40.109 Localization-related (focal) (partial) symptomatic epilepsy and epileptic syndromes with simple partial seizures, not intractable, without status epilepticus (principal); Z51.81 Encounter for therapeutic drug level monitoring